=== PATIENT | male | born 1965 | race Caucasian/White ===

== ENCOUNTER 2021-09-17 16:03 | Inpatient (IN) | payer MEDICARE, MEDICAID, SELFPAY ==
[2021-09-17] VITALS (7 sets, daily range): BP systolic 117–139; BP diastolic 76–104; PULSE 123–194; RESP 20–33; TEMP 35.7–36.9; O2SAT 94–98; BMI 24.7; BMI 24.5
--- NOTE | 2021-09-17 16:53 | EKG12_ITS ---
Test Reason : TACH Blood Pressure : / mmHG Vent. Rate : 141 BPM Atrial Rate : 141 BPM P-R Int : 118 ms QRS Dur : 092 ms QT Int : 278 ms P-R-T Axes : 029 036 111 degrees QTc Int : 425 ms Sinus tachycardia Left ventricular hypertrophy with repolarization abnormality Abnormal ECG Confirmed by CRISS PAYTON, KEO ([id number]), general expeditor JEAN SIGALA ([id number]) on 09/21/2021 10:51:28 AM Referred By: BERNARDA Confirmed By:KEO KAHN MD
--- NOTE | 2021-09-17 16:56 | EX.ED.DYSGE1 ---
HPI History of Present Illness Chief Complaint: General Illness Informant: patient Narrative Narrative: Patient poor informant from medical records history of hypertension anxiety he states difficulty coughing due to not having his teeth in. From discussion gathering information 2 weeks ago constipation has not had a bowel movement since then. Denies abdominal pain. He has been eating certain foods with no problems. He states last week mild cough and headache. No vomiting or diarrhea. No fevers. Denies any sick contacts. No other complaints. No urinary symptoms. PFSH PFS Medical History (Updated 09/17/21 @ 23:[address] John Adrian, DO) Anxiety Hypertension Home Medications dicyclomine 20 mg PO TIDAC 02/26/14 [History Last Taken Unknown] lorazepam 0.5 mg PO TID 02/26/14 [History Last Taken 03/05/14 07:00 0.5 MG] metoprolol tartrate 100 mg PO BID 02/26/14 [History Last Taken 03/05/14 07:00 100 MG] omega-3 fatty acids-fish oil [Fish Oil 1,000 mg Capsule] 1 ea PO DAILY 02/26/14 [History Last Taken 03/05/14 07:00 1 EACH] paroxetine HCl 20 mg PO DAILY 02/26/14 [History Last Taken Unknown] Allergy/AdvReac Type Severity Reaction Status Date / Time No Known Allergies Allergy Verified 09/17/21 16:04 Family History unable to obtain Surgical History no surgical history Social History (Updated 09/17/21 @ 20:13 by Sherry Haywood NP-C) Smoking Status: Never smoker alcohol intake: never substance use type: does not use ROS ROS ED Constitutional Constitutional ED: Denies chills, fever(s) or sweats Eyes Eyes: Denies change in vision ENT ENT ED: Denies dysphagia or sore throat Cardiovascular Cardiovascular: Denies chest pain, leg edema, palpitations or racing heartbeat Respiratory/Chest Respiratory/Chest: Reports cough; Denies dyspnea or dyspnea on exertion Gastrointestinal Gastrointestinal: Reports constipation; Denies abdominal pain, diarrhea, nausea or vomiting Genitourinary Genitourinary ED: Denies dysuria, hematuria or urinary frequency Musculoskeletal Musculoskeletal: Denies back pain, extremity pain or neck pain Integumentary Denies rash or wounds Neurologic Neurologic: Reports headache(s); Denies paresthesias or weakness EXAM Physical Exam Const Vital Signs: 09/17/21 16:06 09/17/21 19:04 09/17/21 19:44 Temperature 98.0 F 98.4 F Temperature Source Temporal Temporal Pulse Rate 150 H 123 H 194 H Respiratory Rate 33 H 24 H 25 H Blood Pressure 117/104 H 134/86 H 139/76 H Blood Pressure Mean 108 102 97 Pulse Ox 95 95 94 Oxygen Delivery Method Room Air Room Air 09/17/21 20:19 09/17/21 20:26 Temperature Temperature Source Pulse Rate 144 H 132 H Respiratory Rate Blood Pressure Blood Pressure Mean Pulse Ox 95 Oxygen Delivery Method Room Air Positive well nourished and well developed Constitutional Narrative: Stuttering voice, nontoxic General Appearance ED: well developed HEENT Reports dry mucous membranes normocephalic and atraumatic Mouth ED: Yes dry mucous membranes Mouth: dry mucous membranes Eyes PERRL, EOMs intact bilaterally and conjunctivae normal General Eye ED: Yes normal appearance of both eyes Neck no lymphadenopathy and supple General: Negative for tenderness Chest Wall Chest: Negative for tenderness Resp normal respiratory effort and normal air movement Effort and Inspection: symmetric chest movement; Negative for respiratory distress Cardio regular rhythm and no murmurs Rate: tachycardic Peripheral Pulses: pulses 2+ throughout GI normal to inspection, nondistended, normoactive bowel sounds and non-tender Auscultation: normoactive bowel sounds Palpation: Negative for guarding or rebound tenderness present Back/Spine no CVA tenderness and no thoracic nor lumbar tenderness Extremity normal to inspection General Extremety ED: Negative for edema or tenderness General Extremity: Negative for edema Neuro oriented x3 and no sensory deficits noted Sensorium / Orientation: awake and alert Skin no rashes or lesions noted and no wounds MDM MDM MDM Narrative Medical decision making narrative: Patient presenting afebrile pulse ox 95%. Nontoxic with stuttering voice. He is tachycardic he has dry mucosal membranes. Heart rate in the 130s sinus rhythm on the monitor. Primary complaint is cough constipation. Will obtain abdominal series will check labs Covid testing and give IV fluids. Patient heart rate was in flu after 1 L of fluids down to 120s I did continue at 200 cc/h. Lab work notes acute kidney injury creatinine of 3 more likely concerns for prerenal due to his dry mucosal membranes. Potassium normal. Chest x-ray reported concerns for bilateral infiltrates. His Covid was negative. I spoke with hospitalist Dr. Benítez, requested adding a PCR for Covid prior to any antibiotics. This was added and pending. We did add a tox screen also returning negative. He did meet SIRS criteria therefore lactic acid and blood cultures were added. Patient admitted to medical floor on telemetry to hospitalist service. Lab Data Labs: Laboratory Results - last 24 hr 09/17/21 09/17/21 09/17/21 16:18 16:18 16:18 WBC 6.1 RBC 4.61 Hgb 14.5 Hct 43.0 MCV 93.3 MCH 31.5 MCHC 33.7 RDW Std Deviation 45.5 H RDW Coeff of Marycruz 14.1 Plt Count 311 MPV 10.7 Immature Gran % (Auto) 1.000 H Neut % (Auto) 64.2 Lymph % (Auto) 18.1 L [place] % (Auto) 14.9 H Eos % (Auto) 1.3 Baso % (Auto) 0.5 Absolute Neuts (auto) 3.9 Absolute Lymphs (auto) 1.11 Nucleated RBC % 0 Sodium 146 H Potassium 3.7 Chloride 113 H Carbon Dioxide 17.0 L Anion Gap 16 H BUN 111 H* Creatinine 3.15 H Estim Creat Clear Calc 25.06 Est GFR (MDRD) Af Amer 27 L Est GFR (MDRD) Non-Af 22 L BUN/Creatinine Ratio 35.2 H Glucose 144 H Lactic Acid Calcium 9.9 Total Bilirubin 0.80 AST 26 ALT 102 H Alkaline Phosphatase 250 H B-Natriuretic Peptide 24.1 Total Protein 8.4 H Albumin 3.7 Globulin 4.7 H Albumin/Globulin Ratio 0.8 L Lipase 167 Procalcitonin Urine Opiates Screen Urine Methadone Screen Ur Barbiturates Screen Ur Phencyclidine Scrn Ur Amphetamines Screen U Methamphetamin-MDMA U Benzodiazepines Scrn Urine Cocaine Screen U Cannabinoids Screen Ur Drug Screen Comment COVID-19 (LEONILA) 09/17/21 09/17/21 09/17/21 16:18 19:45 20:25 WBC RBC Hgb Hct MCV MCH MCHC RDW Std Deviation RDW Coeff of Marycruz Plt Count MPV Immature Gran % (Auto) Neut % (Auto) Lymph % (Auto) [place] % (Auto) Eos % (Auto) Baso % (Auto) Absolute Neuts (auto) Absolute Lymphs (auto) Nucleated RBC % Sodium Potassium Chloride Carbon Dioxide Anion Gap BUN Creatinine Estim Creat Clear Calc Est GFR (MDRD) Af Amer Est GFR (MDRD) Non-Af BUN/Creatinine Ratio Glucose Lactic Acid Calcium Total Bilirubin AST ALT Alkaline Phosphatase B-Natriuretic Peptide Total Protein Albumin Globulin Albumin/Globulin Ratio Lipase Procalcitonin 0.52 H Urine Opiates Screen NEGATIVE Urine Methadone Screen NEGATIVE Ur Barbiturates Screen NEGATIVE Ur Phencyclidine Scrn NEGATIVE Ur Amphetamines Screen NEGATIVE U Methamphetamin-MDMA NEGATIVE U Benzodiazepines Scrn NEGATIVE Urine Cocaine Screen NEGATIVE U Cannabinoids Screen NEGATIVE Ur Drug Screen Comment COVID-19 (LEONILA) Not Detected 09/17/21 20:25 WBC RBC Hgb Hct MCV MCH MCHC RDW Std Deviation RDW Coeff of Marycruz Plt Count MPV Immature Gran % (Auto) Neut % (Auto) Lymph % (Auto) [place] % (Auto) Eos % (Auto) Baso % (Auto) Absolute Neuts (auto) Absolute Lymphs (auto) Nucleated RBC % Sodium Potassium Chloride Carbon Dioxide Anion Gap BUN Creatinine Estim Creat Clear Calc Est GFR (MDRD) Af Amer Est GFR (MDRD) Non-Af BUN/Creatinine Ratio Glucose Lactic Acid 2.3 H* Calcium Total Bilirubin AST ALT Alkaline Phosphatase B-Natriuretic Peptide Total Protein Albumin Globulin Albumin/Globulin Ratio Lipase Procalcitonin Urine Opiates Screen Urine Methadone Screen Ur Barbiturates Screen Ur Phencyclidine Scrn Ur Amphetamines Screen U Methamphetamin-MDMA U Benzodiazepines Scrn Urine Cocaine Screen U Cannabinoids Screen Ur Drug Screen Comment COVID-19 (LEONILA) Radiography Diagnostic Testing: Clinical Impression(s) from Imaging Studies Acute Abdomen Series 09/17/21 17:15 IMPRESSION: Minimal patchy pulmonary opacities may represent infection in the appropriate clinical setting. Unremarkable abdominal radiographs. Electronically Signed: Reilly Phoenix MD at 17:43 EST , EKG Initial EKG: Attestation: I personally reviewed and interpreted this EKG as follows: Comments: Sinus tachycardia rate of 141, no ST or T wave changes. Discharge Plan Dx/Rx/DC Orders Clinical Impression: MARTY (acute kidney injury), Constipation, Acute dehydration Disposition Disposition: [facility] Discharge Date/Time: 09/17/21 21:24
[2021-09-17] MEDS: 0.9% Normal Saline 1,000 ML 1000 ML IV (17:10)
--- NOTE | 2021-09-17 17:15 | RAD_ITS ---
STUDY: X-RAY - ACUTE ABDOMINAL SERIES REASON FOR EXAM: Male, 55 years old. Cough, constipation TECHNIQUE: Single view of the chest. Supine, and erect view(s) of the abdomen were obtained. COMPARISON: None. FINDINGS: Minimal diffuse patchy pulmonary opacities. Normal size heart. Normal mediastinum and yunior. Normal visualized pulmonary arteries. Normal visualized aortic arch and descending thoracic aorta. There is a non-specific bowel gas pattern. The soft tissue structures of the abdomen and pelvis are unremarkable. Normal visualized osseous structures. RAD/Acute Abdomen Inc Chest IMPRESSION: Minimal patchy pulmonary opacities may represent infection in the appropriate clinical setting. Unremarkable abdominal radiographs. Electronically Signed: Reilly Phoenix MD at 17:43 EST ,
[2021-09-17 17:25] LABS: Absolute Lymphocyte Count 1.11 X10^3/uL (0.83-4.51); Absolute Neutrophil Count 3.9 X10^3/uL (2.0-7.7); Basophil# 0.03 X10^3/uL; Basophil% 0.5 % (0-1); Eosinophil# 0.08 X10^3/uL; Eosinophils% 1.3 % (0-5); Hemoglobin 14.5 g/dL (13.0-16.5); Lymphocyte # 1.11 X10^3/ul (0.83-4.51); Lymphocyte % 18.1 % (19-41); Mean Corp Hgb Conc 33.7 g/dL (32-36); Mean Corpuscular Hgb 31.5 pg (27.0-32.0); Mean Corpuscular Volume 93.3 fL (80-94); Mean Platelet Vol. 10.7 fl (6.2-12.0); Monocyte# 0.91 X10^3/uL; Monocyte% 14.9 % (0-10); NRBC Flagged by Analyzer 0 % (0-5); Neutrophil # 3.93 X10^3/uL (2.7-7.7); Neutrophil % 64.2 % (47-70); Platelet Count 311 K/mm3 (150-450); RBC Distribution Width CV 14.1 % (11.6-14.6); RBC Distribution Width SD 45.5 fl (35.1-43.9); Red Blood Count 4.61 M/mm3 (4.6-6.2); White Blood Count 6.1 K/mm3 (4.4-11.0)
[2021-09-17 18:27] LABS: ALB/GLOB Ratio 0.8 RATIO (0.9-2.4); AST(SGOT) 26 U/L (15-37); Alanine Aminotransfer ALT/SGPT 102 U/L (16-61); Albumin, Serum 3.7 g/dL (3.2-5.0); Alkaline Phosphatase 250 U/L (45-117); Anion Gap 16 (5-15); BUN 111 mg/dL (7-18); BUN/Creat Ratio 35.2 RATIO (10-20); Calcium,Total 9.9 mg/dL (8.5-10.1); Chloride 113 mmol/L (98-107); Creatinine, Serum 3.15 mg/dL (0.70-1.30); EST Glomerular Filtration Rate 22 mL/min (>60); Est Glom Filt Rate - Afr Amer 27 mL/min (>60); Estimated Creatinine Clearance 25.06 ml/min; Globulin 4.7 g/dL (2.2-4.2); Glucose 144 mg/dL (74-106); Lipase 167 U/L (73-393); Potassium 3.7 mmol/L (3.5-5.1); Protein, Total 8.4 g/dL (6.4-8.2); Sodium Level 146 mmol/L (136-145)
--- NOTE | 2021-09-17 19:48 | ED.RN ---
Patient is positive on sepsis screen and already had 1L NS wide open. Has 200ml/hr ordered but waiting on pharm to verify.
[2021-09-17] MEDS: 0.9% Normal Saline 1,000 ML 200 ML IV (19:52)
--- NOTE | 2021-09-17 19:52 | ED.RN ---
Dr Adrian aware of the sepsis positive but with creatinine and bun, we are just keeping fluids as is and not doing the full resuscitation. We will still do lactic and cultures
--- NOTE | 2021-09-17 20:08 | HP.PCM_ITS ---
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 Patient also reports that he is constipated and has not had a bowel movement in 2 weeks. Patient denies shortness of breath, chest pain, fever, abdominal pain, nausea, vomiting. Patient states that he has felt unwell for approximately 1 week but has been constipated for 2. Patient denies using any [id number] laxatives to treat constipation. Patient reports a medical history of anxiety and hypertension. [facility] Medical History (Updated 09/17/21 @ 20:28 by VAISHNAVI Mora) Anxiety Hypertension Home Medications dicyclomine 20 mg PO TIDAC 02/26/14 [History Last Taken Unknown] lorazepam 0.5 mg PO TID 02/26/14 [History Last Taken 03/05/14 07:00 0.5 MG] metoprolol tartrate 100 mg PO BID 02/26/14 [History Last Taken 03/05/14 07:00 100 MG] omega-3 fatty acids-fish oil [Fish Oil 1,000 mg Capsule] 1 ea PO DAILY 02/26/14 [History Last Taken 03/05/14 07:00 1 EACH] paroxetine HCl 20 mg PO DAILY 02/26/14 [History Last Taken Unknown] Allergy/AdvReac Type Severity Reaction Status Date / Time No Known Allergies Allergy Verified 09/17/21 16:04 Family History unable to obtain unable to obtain (Patient is unable to report medical history for family) Surgical History no surgical history no surgical history Social History (Updated 09/17/21 @ 20:13 by VAISHNAVI Mora) Smoking Status: Never smoker alcohol intake: never substance use type: does not use ROS Constitutional Constitutional: Reports malaise; Denies anorexia, chills, fatigue, fever(s) or weakness Cardiovascular Cardiovascular: Denies chest pain, edema, palpitations or syncope Respiratory/Chest Respiratory/Chest: Reports cough; Denies hemoptysis, shortness of breath at rest, shortness of breath with exertion or wheezing Gastrointestinal Gastrointestinal: Reports constipation; Denies abdominal pain, diarrhea, nausea or vomiting Genitourinary Genitourinary: Denies dysuria Musculoskeletal Musculoskeletal: Denies back pain, extremity pain, joint pain or joint stiffness Integumentary Integumentary: Denies dry skin Neurologic Neurologic: Reports abnormal speech and headache(s); Denies abnormal gait, confusion or dizziness Psychiatric Psychiatric: Reports anxiety; Denies depression Endocrine Endocrinology: Denies change in body appearance Hematologic/Lymphatic Hematologic/Lymphatic: Denies anemia, easy bleeding or easy bruising Vital Signs Vital Signs Vital Signs: 09/17/21 16:06 09/17/21 19:04 09/17/21 19:44 Temperature 98.0 F 98.4 F Temperature Source Temporal Temporal Pulse Rate 150 H 123 H 194 H Respiratory Rate 33 H 24 H 25 H Blood Pressure 117/104 H 134/86 H 139/76 H Blood Pressure Mean 108 102 97 Pulse Ox 95 95 94 Oxygen Delivery Method Room Air Room Air Weight Weight: 158 lb 4.67 oz Body Mass Index (BMI) 24.7 Physical Exam Const alert and oriented x3 General Appearance: cooperative HEENT normocephalic and head/scalp atraumatic Eyes conjunctivae normal and no scleral icterus Neck supple and thyroid normal Lymph Lymphatic: no lymphadenopathy noted Resp normal respiratory effort, normal air movement and clear to auscultation bilaterally Effort and Inspection: tachypneic; Negative for labored Auscultation: Negative for wheezes Cardio regular rhythm, S1 normal heart sound, S2 normal heart sound and peripheral pulses 2+ throughout Rate: tachycardic GI normal to inspection, nondistended, normoactive bowel sounds, soft to palpation and non-tender Extremity normal capillary refill and no clubbing, cyanosis or edema General Extremity: no tenderness to palpation of joints or extremities Skin General Skin Exam: no breakdown and turgor normal Lesions: no lesions Rashes: no rashes Neuro no focal motor deficits and no sensory deficits noted Speech: speech abnormal Details: Positive for stuttering (Patient not currently wearing dentures) Motor Exam: Negative for general weakness Psych cooperative Appearance: bizarre Attitude: bizarre Activity / Motor Behavior: avoids eye contact Mood & Affect: anxious Results Lab / Micro Data Result Diagrams: 09/17/21 16:18 09/17/21 16:18 Labs: Laboratory Results - last 24 hr 09/17/21 16:18: WBC 6.1, RBC 4.61, Hgb 14.5, Hct 43.0, MCV 93.3, MCH 31.5, MCHC 33.7, RDW Std Deviation 45.5 H, RDW Coeff of Marycruz 14.1, Plt Count 311, MPV 10.7, Immature Gran % (Auto) 1.000 H, Neut % (Auto) 64.2, Lymph % (Auto) 18.1 L, [place] % (Auto) 14.9 H, Eos % (Auto) 1.3, Baso % (Auto) 0.5, Absolute Neuts (auto) 3.9, Absolute Lymphs (auto) 1.11, Nucleated RBC % 0 09/17/21 16:18: Sodium 146 H, Potassium 3.7, Chloride 113 H, Carbon Dioxide 17.0 L, Anion Gap 16 H, BUN 111 H*, Creatinine 3.15 H, Estim Creat Clear Calc 25.06, Est GFR (MDRD) Af Amer 27 L, Est GFR (MDRD) Non-Af 22 L, BUN/Creatinine Ratio 35.2 H, Glucose 144 H, Calcium 9.9, Total Bilirubin 0.80, AST 26, ALT 102 H, Alk ferdinand Phosphatase 250 H, Total Protein 8.4 H, Albumin 3.7, Globulin 4.7 H, Albumin/Globulin Ratio 0.8 L, Lipase 167 Micro: Microbiology 09/17/21 17:13 Nasal Secretion SARS-CoV-2 Antigen (Rapid) - Final Radiology Impression Acute Abdomen Series 09/17/21 17:15 IMPRESSION: Minimal patchy pulmonary opacities may represent infection in the appropriate clinical setting. Unremarkable abdominal radiographs. Electronically Signed: Reilly Phoenix MD at 17:43 EST , Assessment & Plan Assessment/Plan (1) MARTY (acute kidney injury): (2) Constipation: QUALIFIERS: Constipation type: unspecified constipation type Qualified Code(s): K59.00 - Constipation, unspecified (3) Bilateral pneumonia: QUALIFIERS: Lung location: lower lobe of lung Pneumonia type: due to unspecified organism Qualified Code(s): J18.9 - Pneumonia, unspecified organism PLAN: 1. Acute kidney injury -Admit to PCU for cardiac monitoring -Patient received 1 L normal saline in ER, normal saline 200 mL/h -BMP and CBC daily -Daily weights with intake and output -O2 per protocol -Troponin x1 2. Bilateral pneumonia -Patchy infiltrates in bilateral lower lobes demonstrated on acute abdominal series. With patient's report of malaise and cough suspicious for pneumonia. -Patient not vaccinated for COVID-19, rapid antigen negative. PCR ordered due to length of patient's symptoms -Procalcitonin, sputum culture, urine Legionella and strep ordered -Patient currently on room air, pulse ox 95% -If Covid PCR is negative patient will be initiated on antibiotic regimen. -BMP, CRP, D-dimer, ferritin, LDH ordered -As needed albuterol ordered 3. Constipation -Bowel regimen ordered due to patient's report that he has not had a bowel movement in 2 weeks 4. Hypertension -Continue metoprolol -Vital signs per protocol, currently stable 5. Anxiety -Continue home medication regimen including paroxetine and lorazepam. DVT prophylaxis-subcu heparin and SCDs This patient was seen by Sherry Haywood NP-C under the supervision of Dr. Benítez. 27 minutes spent in clinical coordination of patient's plan of care. Documented by User: Dr. Jyoti Benítez MD 09/17/21 22:45 HPI - General General Date of Admission: 09/17/21 [facility] Medical History (Updated 09/17/21 @ 20:28 by Sherry Haywood NP-C) Anxiety Hypertension Home Medications dicyclomine 20 mg PO TIDAC 02/26/14 [History Last Taken Unknown] lorazepam 0.5 mg PO TID 02/26/14 [History Last Taken 03/05/14 07:00 0.5 MG] metoprolol tartrate 100 mg PO BID 02/26/14 [History Last Taken 03/05/14 07:00 100 MG] omega-3 fatty acids-fish oil [Fish Oil 1,000 mg Capsule] 1 ea PO DAILY 02/26/14 [History Last Taken 03/05/14 07:00 1 EACH] paroxetine HCl 20 mg PO DAILY 02/26/14 [History Last Taken Unknown] Allergy/AdvReac Type Severity Reaction Status Date / Time No Known Allergies Allergy Verified 09/17/21 16:04 Family History unable to obtain Surgical History no surgical history Social History (Updated 09/17/21 @ 20:13 by Sherry Haywood [employer]-C) Smoking Status: Never smoker alcohol intake: never substance use type: does not use Results Lab / Micro Data Result Diagrams: 09/17/21 16:18 09/17/21 16:18
[2021-09-17 21:40] LABS: Amphetamine Urine VISTA NEGATIVE (<1000 ng/mL); Barbiturate Urine VISTA NEGATIVE (< 200 ng/mL); Benzodiazepine Urine VISTA NEGATIVE (< 200 ng/mL); Cocaine Urine VISTA NEGATIVE (< 300 ng/mL); Ecstacy Urine VISTA NEGATIVE (< 500 ng/mL); Methadone Urine VISTA NEGATIVE (< 300 ng/mL); PCP Urine VISTA NEGATIVE (< 25 ng/mL); THC Urine VISTA NEGATIVE (< 50 ng/mL); Vista UDS pH Range 5
[2021-09-17 21:56] LABS: Lactic Acid 2.3 mmol/L (0.4-1.9)
[2021-09-17 21:57] LABS: Procalcitonin 0.52 ng/mL (0.00-0.09)
[2021-09-17 21:59] LABS: BNP,B-Type NATRIURETIC PEPTIDE 24.1 pg/mL (0-100)
[2021-09-17] MEDS: LORazepam 0.5 MG Tablet PO (22:40)
[2021-09-17] MEDS: Heparin Injection (Vial) 5,000 UNIT/ML VIAL 5000 UNIT SC (22:40)
[2021-09-17] MEDS: 0.9% Normal Saline 1,000 ML 150 ML IV (22:40)
[2021-09-17 23:00] LABS: D-Dimer Quantitative (DVT/PE) 0.42 FEU/ug/m (0.27-0.49)
[2021-09-17 23:16] LABS: Ferritin 797 ng/mL (26-388); LDH 182 U/L (87-241); Troponin-I HS 36 pg/mL (3.0-78.0)
[2021-09-17] MEDS: Ceftriaxone 1 GM/50 ML BAG IV (23:27)
[2021-09-18] VITALS (12 sets, daily range): BP systolic 113–147; BP diastolic 80–98; PULSE 77–135; RESP 12–20; TEMP 36.3–36.6; O2SAT 95–98
[2021-09-18 00:28] LABS: Reflex Lactate? Y
[2021-09-18 01:20] LABS: Lactic Acid 1.7 mmol/L (0.4-1.9)
--- NOTE | 2021-09-18 01:27 | PCS.PANDOC ---
PANDEMIC DOCUMENTATION INITIATED: Date: 04/06/2021 Time: 190
[2021-09-18 03:37] LABS: Mucous, Urine 0 SEEN /hpf (<or=2+); Squamous Epithelial Cells - UA 0 SEEN /hpf (0-5); White Blood Cells 0 SEEN /hpf (0-5)
[2021-09-18 03:42] LABS: Color, Urine Yellow (Yellow); Glucose, Dipstick Normal (Normal); Ketone-Dipstick Negative (Negative); Leukocyte Esterase-Dipstick Negative /ul (Negative); Nitrite-Dipstick Negative (Negative); Occult Blood-Urine 10 /ul (Negative); Protein-Dipstick 30 mg/dl (Negative); Specific Gravity, Urine 1.015 (1.002-1.030); Urine Bilirubin Dipstick Negative (Negative); Urine Clarity Clear (Clear); Urine Urobilinogen Normal (Normal)
[2021-09-18 04:00] LABS: Amorphous Sediment 1+; Bacteria 2+ /hpf (None Seen); Red Blood Cells-Urine 0-5 SEEN /hpf (0-5)
[2021-09-18 04:01] LABS: Fine Granular Cast- Urine 0-5 SEEN /lpf (0-5)
[2021-09-18 05:34] LABS: Absolute Lymphocyte Count 0.55 X10^3/uL (0.83-4.51); Absolute Neutrophil Count 3.5 X10^3/uL (2.0-7.7); Basophil# 0.01 X10^3/uL; Basophil% 0.2 % (0-1); Eosinophil# 0.03 X10^3/uL; Eosinophils% 0.6 % (0-5); Hematocrit 35.8 % (40-54); Hemoglobin 11.9 g/dL (13.0-16.5); Lymphocyte # 0.55 X10^3/ul (0.83-4.51); Lymphocyte % 11.1 % (19-41); Mean Corp Hgb Conc 33.2 g/dL (32-36); Mean Corpuscular Hgb 31.4 pg (27.0-32.0); Mean Corpuscular Volume 94.5 fL (80-94); Mean Platelet Vol. 10.2 fl (6.2-12.0); Monocyte# 0.76 X10^3/uL; Monocyte% 15.4 % (0-10); NRBC Flagged by Analyzer 0 % (0-5); Neutrophil # 3.53 X10^3/uL (2.7-7.7); Neutrophil % 71.3 % (47-70); POSITIVE DIFFERENTIAL YES; Platelet Count 185 K/mm3 (150-450); RBC Distribution Width CV 14.3 % (11.6-14.6); RBC Distribution Width SD 46.8 fl (35.1-43.9); Red Blood Count 3.79 M/mm3 (4.6-6.2)
[2021-09-18 05:44] LABS: Differential Indicated SCAN CRITERIA MET
[2021-09-18] MEDS: LORazepam 0.5 MG Tablet PO ×3 (06:00→21:22)
[2021-09-18] MEDS: 0.9% Normal Saline 1,000 ML 150 ML IV (06:00)
[2021-09-18] MEDS: Dicyclomine 10 MG Capsule 20 MG PO ×3 (06:00→16:47)
[2021-09-18 06:10] LABS: ALB/GLOB Ratio 0.7 RATIO (0.9-2.4); AST(SGOT) 56 U/L (15-37); Alanine Aminotransfer ALT/SGPT 98 U/L (16-61); Alkaline Phosphatase 246 U/L (45-117); Anion Gap 7 (5-15); BUN 96 mg/dL (7-18); Calcium,Total 9.5 mg/dL (8.5-10.1); Chloride 120 mmol/L (98-107); EST Glomerular Filtration Rate 30 mL/min (>60); Est Glom Filt Rate - Afr Amer 36 mL/min (>60); Estimated Creatinine Clearance 31.75 ml/min; Globulin 4.6 g/dL (2.2-4.2); Glucose 124 mg/dL (74-106); Potassium 3.7 mmol/L (3.5-5.1); Protein, Total 7.6 g/dL (6.4-8.2); Sodium Level 149 mmol/L (136-145)
[2021-09-18 06:12] LABS: Differential Comment SCANNED
--- NOTE | 2021-09-18 07:59 | PCM.PN.HOSP ---
Subjective Subjective Follow-up for acute kidney injury. Objective Data Objective Data Vital Signs: Vital Signs Temp Pulse Resp BP Pulse Ox 97.6 F L 117 H 20 H 136/80 H 98 09/18/21 02:03 09/18/21 06:23 09/18/21 02:03 09/18/21 02:03 09/18/21 07:41 Oxygen Delivery Method Room Air Weight: 152 lb 5.431 oz Body Mass Index (BMI) 24.5 Intake & Output: Intake and Output for Last 24 Hours 09/16/21 09/17/21 09/18/21 23:59 23:59 23:59 Intake Total 2170 / 2170 1495 / 1495 Output Total 150 / 150 Balance 2170 / 2170 1345 / 1345 Lab / Micro Data Result Diagrams: 09/18/21 05:05 09/18/21 05:05 Labs: Laboratory Results - last 24 hr 09/17/21 16:18: WBC 6.1, RBC 4.61, Hgb 14.5, Hct 43.0, MCV 93.3, MCH 31.5, MCHC 33.7, RDW Std Deviation 45.5 H, RDW Coeff of Marycruz 14.1, Plt Count 311, MPV 10.7, Immature Gran % (Auto) 1.000 H, Neut % (Auto) 64.2, Lymph % (Auto) 18.1 L, Atkinson % (Auto) 14.9 H, Eos % (Auto) 1.3, Baso % (Auto) 0.5, Absolute Neuts (auto) 3.9, Absolute Lymphs (auto) 1.11, Nucleated RBC % 0 09/17/21 16:18: Sodium 146 H, Potassium 3.7, Chloride 113 H, Carbon Dioxide 17.0 L, Anion Gap 16 H, BUN 111 H*, Creatinine 3.15 H, Estim Creat Clear Calc 25.06, Est GFR (MDRD) Af Amer 27 L, Est GFR (MDRD) Non-Af 22 L, BUN/Creatinine Ratio 35.2 H, Glucose 144 H, Calcium 9.9, Total Bilirubin 0.80, AST 26, ALT 102 H, Alkaline Phosphatase 250 H, Total Protein 8.4 H, Albumin 3.7, Globulin 4.7 H, Albumin/Globulin Ratio 0.8 L, Lipase 167 09/17/21 16:18: B-Natriuretic Peptide 24.1 09/17/21 16:18: Procalcitonin 0.52 H 09/17/21 16:18: Acetone Level NEGATIVE 09/17/21 19:45: COVID-19 (LEONILA) Not Detected 09/17/21 20:25: Urine Opiates Screen NEGATIVE, Urine Methadone Screen NEGATIVE, Ur Barbiturates Screen NEGATIVE, Ur Phencyclidine Scrn NEGATIVE, Ur Amphetamines Screen NEGATIVE, U Methamphetamin-MDMA NEGATIVE, U Benzodiazepines Scrn NEGATIVE, Urine Cocaine Screen NEGATIVE, U Cannabinoids Screen NEGATIVE, Ur Drug Screen Comment 09/17/21 20:25: Lactic Acid 2.3 H* 09/17/21 22:30: D-Dimer Quant (PE/DVT) 0.42 09/17/21 22:30: Ferritin 797 H, Lactate Dehydrogenase 182, Troponin I High Sens 36, C-React Prot Ext Range 69.00 H 09/18/21 00:43: Lactic Acid 1.7 09/18/21 03:30: Urine Color Yellow, Urine Clarity Clear, Urine pH 5.0, Ur Specific [place] 1.015, Urine Protein 30 H, Urine Glucose (UA) Normal, Urine Ketones Negative, Urine Occult Blood 10 H, Urine Nitrite Negative, Urine Bilirubin Negative, Urine Urobilinogen Normal, Ur Leukocyte Esterase Negative, Urine RBC 0-5 SEEN, Urine WBC 0 SEEN, Ur Squamous Epith Cells 0 SEEN, Amorphous Sediment 1+, Urine Bacteria 2+, Fine Granular Casts 0-5 SEEN, Urine Mucus 0 SEEN 09/18/21 05:05: WBC 5.0, RBC 3.79 L, Hgb 11.9 L, Hct 35.8 L, MCV 94.5 H, MCH 31.4, MCHC 33.2, RDW Std Deviation 46.8 H, RDW Coeff of Marycruz 14.3, Plt Count 185, MPV 10.2, Immature Gran % (Auto) 1.400 H, Neut % (Auto) 71.3 H, Lymph % (Auto) 11.1 L, Atkinson % (Auto) 15.4 H, Eos % (Auto) 0.6, Baso % (Auto) 0.2, Absolute Neuts (auto) 3.5, Absolute Lymphs (auto) 0.55 L, Nucleated RBC % 0, Differential Comment SCANNED 09/18/21 05:05: Sodium 149 H, Potassium 3.7, Chloride 120 H, Carbon Dioxide 22.0, Anion Gap 7, BUN 96 H, Creatinine 2.40 H, Estim Creat Clear Calc 31.75, Est GFR (MDRD) Af Amer 36 L, Est GFR (MDRD) Non-Af 30 L, BUN/Creatinine Ratio 40.0 H, Glucose 124 H, Calcium 9.5, Total Bilirubin 0.60, AST 56 H, ALT 98 H, Alkaline Phosphatase 246 H, Total Protein 7.6, Albumin 3.0 L, Globulin 4.6 H, Albumin/Globulin Ratio 0.7 L Micro: Microbiology 09/17/21 20:25 Urine, Random Legionella Antigen - Final 09/17/21 20:25 Urine, Random Streptococcus pneumoniae Antigen (M - Final 09/17/21 17:13 Nasal Secretion SARS-CoV-2 Antigen (Rapid) - Final Radiography Diagnostic Testing: Radiology Impression Acute Abdomen Series 09/17/21 17:15 IMPRESSION: Minimal patchy pulmonary opacities may represent infection in the appropriate clinical setting. Unremarkable abdominal radiographs. Electronically Signed: Reilly Phoenix MD at 17:43 EST , Physical Exam Narrative General: Awake, alert and oriented x3. HEENT: Atraumatic, PERRLA, EOMI, Normocephalic Oral: No Gingival or Mucosal Lesions/ Ulcerations Neck: Supple, No JVD, Negative Carotid Bruits Lungs: Air entry diminished in bilateral lung bases. No crepitation/rhonchi Cardiovascular: Sinus tachycardia resolved., Normal S1, Normal S2, No murmurs Abdomen: Bowel Sounds Present, Soft, Non Tender, Non-Distended : No renal angle tenderness. No suprapubic tenderness. Extremities: No edema, Capillary Refill Less than 3 Seconds Skin: No rashes, No breakdown Musculoskeletal: No Tenderness to Palpation of Joints or Extremities. Tremors in both hands. Restless legs. Neurological: Chronic stuttering. No acute. Cranial nerves II-XII grossly intact, DTR 2+/4, Neuro grossly intact Psych/Mental Status: Restless, anxiety Assessment & Plan Assessment/Plan (1) MARTY (acute kidney injury): (2) Constipation: QUALIFIERS: Constipation type: unspecified constipation type Qualified Code(s): K59.00 - Constipation, unspecified (3) Bilateral pneumonia: QUALIFIERS: Lung location: lower lobe of lung Pneumonia type: due to unspecified organism Qualified Code(s): J18.9 - Pneumonia, unspecified organism PLAN: 1. Acute kidney injury: Patient is being admitted to PCU. Seems prerenal. BUN/creatinine profile improving. Monitor intake and output, electrolytes and kidney function. Daily weight. 2. Bilateral pneumonia: Abdominal x-ray independently initially reviewed and shows bilateral infiltrates in lower lobes. -Patient not vaccinated for COVID-19, rapid antigen negative. -Procalcitonin 0.5. Rapid antigen and COVID-19 PCR negative. Normal WBC count. ALC 0.55 thousand. D-dimer, LDH and lactic acid normal. Ferritin and CRP elevated -Patient currently on room air, pulse ox 95%. As needed albuterol 3. Constipation -Bowel regimen. Patient did not bowel for 2 weeks prior to admission 4. Hypertension -Continue metoprolol -Vital signs per protocol, currently stable 5. Anxiety -Continue home medication regimen including paroxetine and lorazepam. DVT prophylaxis-subcu heparin and SCDs Charges/Coding Visit Charges Inpatient E&M: 50776 Subs Hosp L2
[2021-09-18 08:08] LABS: Hemoglobin A1c 5.5 % (3.8-5.6)
[2021-09-18] MEDS: Heparin Injection (Vial) 5,000 UNIT/ML VIAL 5000 UNIT SC ×2 (08:32→21:22)
[2021-09-18] MEDS: Paroxetine 20 MG Tablet PO (08:32)
[2021-09-18] MEDS: Metoprolol Tartrate 100 MG Tablet PO ×2 (08:32→21:23)
--- NOTE | 2021-09-18 10:55 | CASEMGMT ---
DAGOBERTO MELISSA assessment: Face to Face with patient for initial transition planning/care coordination assessment. DAGOBERTO MELISSA introduced self and role at [facility], pt voices understanding and consents to assessment. Pt is sitting up in bed in no distress on room air. Pt is A/Ox4 and answers most questions appropriately. Pt with [employer] and lives with father, who he states is his guardian. Care providers, pharmacy, and demographics verified/updated. Presentation: Pt c/o not eating well or feeling well Admitting dx: Bilat pna, MARTY PCP: Dinh Specialists: Pt states no specialists. [facility]erred [facility]acy: [facility] Insurance: [facility] A/B, HERVE Prescription Benefit: Yes Living Will/HPOA: Pt states does not have LW/HPOA and declines AD info. LNOK: Ugo Colon, father; Angel Colon, brother Living Arrangements: Pt lives with father in 1 story home and states no concerns at home. Pt is independent with ADL's. Transportation: Pt states father drives and states no transportation concerns. DME/HHC: Pt has the following DME: cane, walker, and grab bars. Pt states no need for any further DME. Pt states no hx of HHC or SNF. Pt states he does have a CM thru the board of [employer]. Pt states no concerns with going home at time of discharge. Pt is disabled. Pt states does not smoke cigarettes or drink ETOH. Pt voices no further concerns/needs. CM to follow for any further discharge planning/needs. Advised pt to ask for CM if any further questions/concerns/needs arise, voices understanding. Pt Goal: Home Plan: [place] DAGOBERTO MELISSA
--- NOTE | 2021-09-18 16:25 | RAD_ITS ---
STUDY: X-RAY CHEST REASON FOR EXAM: Male, 55 years old. Fever and cough TECHNIQUE: PA and lateral views of the chest. COMPARISON: 09/17/2021 FINDINGS: EKG leads overlie the chest Lungs are expanded with persistent and unchanged interstitial and airspace opacifications both lung azmudio. Normal size heart. Normal mediastinum and yunior. Normal visualized pulmonary arteries. Normal visualized aortic arch and descending thoracic aorta. Normal visualized thoracic spine. Normal visualized ribs, clavicles, and shoulders. There is no demonstrated abnormality of the visualized soft tissue structures of the upper abdomen. RAD/Chest PA and Lateral IMPRESSION: Persistent interstitial and airspace opacifications of both lung zamudio unchanged from the previous study Electronically Signed: Rickie Ramirez MD at 16:59 EST ,
[2021-09-18] MEDS: Vancomycin IV 1,000 MG/200 ML BAG 200 MG IV (17:33)
--- NOTE | 2021-09-18 18:22 | PCM.RX.CS ---
Consult Pharmacy has been consulted to manage selected antiobiotic: Vancomycin Type of Consult: New start Labs: Sodium 149 mmol/L (136-145) H 09/18/21 05:05 Potassium 3.7 mmol/L (3.5-5.1) 09/18/21 05:05 Chloride 120 mmol/L (98-107) H 09/18/21 05:05 Carbon Dioxide 22.0 mmol/L (21.0-32.0) 09/18/21 05:05 Anion Gap 7 (5-15) 09/18/21 05:05 BUN 96 mg/dL (7-18) H 09/18/21 05:05 Creatinine 2.40 mg/dL (0.70-1.30) H 09/18/21 05:05 Est GFR (MDRD) Af Amer 36 mL/min (>60) L 09/18/21 05:05 Est GFR (MDRD) Non-Af 30 mL/min (>60) L 09/18/21 05:05 BUN/Creatinine Ratio 40.0 RATIO (10-20) H 09/18/21 05:05 Glucose 124 mg/dL (74-106) H 09/18/21 05:05 Microbiology: Microbiology 09/17/21 20:00 Blood Culture (Wb) - Anticubital Left Blood Culture - Preliminary 09/17/21 20:25 Urine, Random Legionella Antigen - Final 09/17/21 20:25 Urine, Random Streptococcus pneumoniae Antigen (M - Final 09/17/21 17:13 Nasal Secretion SARS-CoV-2 Antigen (Rapid) - Final Goal Trough: 15-20 mcg/mL Pharmacy Plan for Drug Dosing: Trough goal: 15-20 Initial dose: 1g IV x1 (15mg/kg) vancomycin ordered and administered09/18/21 @1733 Scheduled dosing IV Q24h to start 09/19/21 @1700 Trough: 09/20/21 @1630, prior to 3rd total dose per protocol Pharmacy Service will continue to monitor and adjust dosing as required.
[2021-09-18] MEDS: Ceftriaxone 1 GM/50 ML BAG IV (21:20)
[2021-09-19] MEDS: LORazepam 0.5 MG Tablet PO ×3 (05:25→21:40)
[2021-09-19 10:00] VITALS: PULSE 80
[2021-09-19] MEDS: Metoprolol Tartrate 100 MG Tablet PO ×2 (10:00→21:40)
[2021-09-19] MEDS: Paroxetine 20 MG Tablet PO (10:00)
[2021-09-19] MEDS: Heparin Injection (Vial) 5,000 UNIT/ML VIAL 5000 UNIT SC ×2 (10:00→21:40)
--- NOTE | 2021-09-19 16:45 | PN_ITS ---
DATE OF SERVICE 09/19/2021 SUBJECTIVE Patient is not short of breath. Spontaneously voiding mildly yellow urine. Patient has chronic stuttering and restlessness. 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 Sinus rhythm therefore ordered to take it off. OBJECTIVE General: Awake, alert and oriented x3. HEENT: Atraumatic, PERRLA, EOMI, Normocephalic Oral: No Gingival or Mucosal Lesions/ Ulcerations Neck: Supple, No JVD, Negative Carotid Bruits Lungs: Air entry diminished in bilateral lung bases. No crepitation/rhonchi Cardiovascular: Sinus rhythm, Normal S1, Normal S2, No murmurs Abdomen: Bowel Sounds Present, Soft, Non Tender, Non-Distended : No burning micturition of urine. No tender in penile urine or scrotal region. No suprapubic tenderness. Extremities: No edema, Capillary Refill Less than 3 Seconds Skin: No rashes, No breakdown Musculoskeletal: No Tenderness to Palpation of Joints or Extremities. Tremors in both hands. Restless legs. Neurological: Chronic stuttering. No acute. Cranial nerves II-XII grossly intact, DTR 2+/4, Neuro grossly intact Psych/Mental Status: Restless, anxiety ASSESSMENT/PLAN 1. Acute kidney injury: Patient is being admitted to PCU. Seems prerenal. BUN/creatinine profile improving. Monitor intake and output, electrolytes and kidney function. Daily weight. 09/19: Labs have been ordered. CBC shows hemoglobin 10.9/32.4. BUN/creatinine 61/1.78, improving. Denies burning micturition. K4.1. Sodium 152. Calcium 9.6. Magnesium 3.0. Phosphorus 2.8. 2. Bilateral pneumonia most likely due to Bactrim: Abdominal x-ray independently initially reviewed and shows bilateral infiltrates in lower lobes. -Patient not vaccinated for COVID-19, rapid antigen negative. -Procalcitonin 0.5. Rapid antigen and COVID-19 PCR negative. Normal WBC count. ALC 0.55 thousand. D-dimer, LDH and lactic acid normal. Ferritin and CRP elevated. Isolation discontinued -Patient currently on room air, pulse ox 95%. As needed albuterol 09/19: Continue antibiotic. 3. Constipation -Bowel regimen. Patient did not bowel for 2 weeks prior to admission 09/19: On a stool softener 4. Hypertension -Continue metoprolol -Vital signs per protocol, currently stable 5. Anxiety -Continue home medication regimen including paroxetine and lorazepam. DVT prophylaxis-subcu heparin and SCDs Billing code: [id number]
[2021-09-19] MEDS: Vancomycin IV 1,000 MG/200 ML BAG 200 MG IV (17:30)
[2021-09-19 21:13] LABS: Hematocrit 32.4 % (40-54); Hemoglobin 10.9 g/dL (13.0-16.5); Mean Corp Hgb Conc 33.6 g/dL (32-36); Mean Corpuscular Hgb 32.1 pg (27.0-32.0); Mean Corpuscular Volume 95.3 fL (80-94); Mean Platelet Vol. 9.5 fl (6.2-12.0); POSITIVE DIFFERENTIAL YES; Platelet Count 193 K/mm3 (150-450); RBC Distribution Width CV 14.1 % (11.6-14.6); RBC Distribution Width SD 46.5 fl (35.1-43.9); White Blood Count 3.7 K/mm3 (4.4-11.0)
[2021-09-19 21:14] LABS: ERROR RESULT FLAG YES; Scan Indicated on CBC? Y/N YES- FLAGS NOTED
[2021-09-19 21:15] LABS: Differential Comment SCANNED
[2021-09-19 21:40] VITALS: PULSE 80
[2021-09-19] MEDS: Ceftriaxone 1 GM/50 ML BAG IV (22:00)
[2021-09-20 01:53] LABS: ALB/GLOB Ratio 0.7 RATIO (0.9-2.4); AST(SGOT) 49 U/L (15-37); Alanine Aminotransfer ALT/SGPT 117 U/L (16-61); Alkaline Phosphatase 230 U/L (45-117); Anion Gap 6 (5-15); BUN 61 mg/dL (7-18); BUN/Creat Ratio 34.3 RATIO (10-20); Calcium,Total 9.6 mg/dL (8.5-10.1); Chloride 123 mmol/L (98-107); Creatinine, Serum 1.78 mg/dL (0.70-1.30); EST Glomerular Filtration Rate 42 mL/min (>60); Est Glom Filt Rate - Afr Amer 51 mL/min (>60); Estimated Creatinine Clearance 42.81 ml/min; Globulin 4.6 g/dL (2.2-4.2); Glucose 108 mg/dL (74-106); Phosphorus 2.8 mg/dL (2.5-4.9); Potassium 4.1 mmol/L (3.5-5.1); Protein, Total 7.6 g/dL (6.4-8.2); Sodium Level 152 mmol/L (136-145)
[2021-09-20 03:15] VITALS: BP 126/100; PULSE 69; RESP 18; TEMP 36.5; O2SAT 96
[2021-09-20] MEDS: LORazepam 0.5 MG Tablet PO ×2 (06:22→13:53)
[2021-09-20 09:15] VITALS: BP 132/84; PULSE 79; RESP 18; TEMP 36.6; O2SAT 97
--- NOTE | 2021-09-20 09:20 | DS.PCM_ITS ---
Providers Date of Admission: 09/17/21 Primary Care Physician: Dr. Titi Tao MD Reason For Visit: BL PNA, ? COVID, MARTY Diagnosis Discharge Diagnosis (1) MARTY (acute kidney injury): Status: Acute Code(s): N17.9 - Acute kidney failure, unspecified (2) Constipation: Status: Acute Code(s): K59.00 - Constipation, unspecified Qualifiers: Constipation type: unspecified constipation type Qualified Code(s): K59.00 - Constipation, unspecified (3) Bilateral pneumonia: Status: Acute Code(s): J18.9 - Pneumonia, unspecified organism Qualifiers: Lung location: lower lobe of lung Pneumonia type: due to unspecified organism Qualified Code(s): J18.9 - Pneumonia, unspecified organism Medications at Discharge Home Medications dicyclomine 20 mg PO TIDAC 02/26/14 lorazepam 0.5 mg PO TID 02/26/14 omega-3 fatty acids-fish oil [Fish Oil 1,000 mg Capsule] 1 ea PO DAILY 02/26/14 paroxetine HCl 20 mg PO DAILY 02/26/14 cefdinir 300 mg PO BID #8 cap 09/20/21 metoprolol tartrate 100 mg PO BID 09/20/21 Hospital Course Summary of Care Provided Hospital Course: This 55-year-old gentleman was admitted with nonproductive cough, headache constipation, did not had bowel movement for 2 weeks along with lab features consistent with acute kidney injury. 1. Acute kidney injury: Patient is being admitted to PCU. Seems prerenal. BUN/creatinine profile improving. Monitor intake and output, electrolytes and kidney function. Daily weight. Patient urine output was adequate and not hungry. CBC shows hemoglobin 10.9/32.4. BUN/creatinine 61/1.78, improving. Denies burning micturition. K4.1. Sodium 152. Calcium 9.6. Magnesium 3.0. Phosphorus 2.8. 2. Bilateral pneumonia most likely due to bacterial pneumonia: Abdominal x-ray independently initially reviewed and shows bilateral infiltrates in lower lobes. Patient has mild nonproductive cough. Patient was started on IV ceftriaxone -Patient not vaccinated for COVID-19, rapid antigen negative. -Procalcitonin 0.5. Rapid antigen and COVID-19 PCR negative. Normal WBC count. ALC 0.55 thousand. D-dimer, LDH and lactic acid normal. Ferritin and CRP elevated. Isolation discontinued. Patient blood culture initially showed gram-positive cocci in cluster and vancomycin was started empirically but final culture showed staph epidermidis thereafter vancomycin discontinued. Patient is discharged on cefdinir to complete a total of 7 days of antibiotic. -Patient currently on room air. 3. Constipation -Bowel regimen. Patient did not bowel for 2 weeks prior to admission. Patient had good bowel movement on 09/19. 4. Hypertension -Continue metoprolol -Vital signs per protocol, currently stable 5. Anxiety -Continue home medication regimen including paroxetine and lorazepam. DVT prophylaxis-subcu heparin and SCDs Discharge medication reconciliation done. Discharge follow-up instructions completed. Discharge process discussed with the patient and all questions were answered to patient's satisfaction. Advised to follow with the current systems management consultant Dr. RUSS in 2 weeks to monitor kidney function and electrolytes. Follow with PCP. Scripts sent to patient's preferred pharmacy. Total time spent, exact 35 minutes on discharge meds reconciliation, examination, coordination of care with nurses and ancillary staff, review of imaging and blood test and discussion with the patient on follow-up instructions Physical Exam Narrative Patient is not short of breath. Spontaneously voiding yellow urine. BUN/creatinine showed improvement patient has chronic stuttering and restlessness. Patient is on lorazepam and paroxetine at home Physical exam General: Awake, alert and oriented x3. HEENT: Atraumatic, PERRLA, EOMI, Normocephalic Oral: No Gingival or Mucosal Lesions/ Ulcerations Neck: Supple, No JVD, Negative Carotid Bruits Lungs: Air entry diminished in bilateral lung bases. No crepitation/rhonchi Cardiovascular: Sinus rhythm, Normal S1, Normal S2, No murmurs Abdomen: Bowel Sounds Present, Soft, Non Tender, Non-Distended : No burning micturition of urine. No tender in penile urine or scrotal region. Urine remote sufficient. No suprapubic tenderness. Extremities: No edema, Capillary Refill Less than 3 Seconds Skin: No rashes, No breakdown Musculoskeletal: No Tenderness to Palpation of Joints or Extremities. Tremors in both hands. Restless legs. Neurological: Chronic stuttering. No acute. Cranial nerves II-XII grossly intact, DTR 2+/4, Neuro grossly intact Psych/Mental Status: Restless, anxiety Weight / BMI Weight Weight: 152 lb 5.431 oz Body Mass Index (BMI) 24.5 ABG / Lab / Microbiology Data Result Diagrams: 09/19/21 12:25 09/19/21 12:25 Laboratory: Laboratory Results - last 24 hr 09/19/21 12:25: WBC 3.7 L, RBC 3.40 L, Hgb 10.9 L, Hct 32.4 L, MCV 95.3 H, MCH 32.1 H, MCHC 33.6, RDW Std Deviation 46.5 H, RDW Coeff of Marycruz 14.1, Plt Count 193, MPV 9.5, Differential Comment SCANNED 09/19/21 12:25: Sodium 152 H, Potassium 4.1, Chloride 123 H, Carbon Dioxide 23.0, Anion Gap 6, BUN 61 H, Creatinine 1.78 H, Estim Creat Clear Calc 42.81, Est GFR (MDRD) Af Amer 51 L, Est GFR (MDRD) Non-Af 42 L, BUN/Creatinine Ratio 34.3 H, Glucose 108 H, Calcium 9.6, Phosphorus 2.8, Magnesium 3.0 H, Total Bilirubin 0.60, AST 49 H, ALT 117 H, Alkaline Phosphatase 230 H, Total Protein 7.6, Albumin 3.0 L, Globulin 4.6 H, Albumin/Globulin Ratio 0.7 L Microbiology: Microbiology 09/17/21 20:00 Blood Culture (Wb) - Anticubital Left Bacteria Detection (PCR) - Final Staphylococcus epidermidis 09/17/21 20:00 Blood Culture (Wb) - Anticubital Left Blood Culture - Preliminary Staphylococcus epidermidis 09/17/21 16:18 Blood Culture (Wb) - Anticubital Left Blood Culture - Preliminary No growth in 48 hours. 09/17/21 20:25 Urine, Random Legionella Antigen - Final 09/17/21 20:25 Urine, Random Streptococcus pneumoniae Antigen (M - Final 09/17/21 17:13 Nasal Secretion SARS-CoV-2 Antigen (Rapid) - Final Meaningful Use Info Meaningful Use Diagnoses (Choose all that apply): None applicable Discharge Plan Admission Admit Date/Time: 09/17/21 20:35 Primary Reason for Your Visit: Acute kidney injury Attending Provider: Fito Pires Primary Care Provider: Titi Tao Discharge Orders/Prescriptions Prescriptions: New cefdinir 300 mg capsule 300 mg PO BID Qty: 8 RF: 0 Continued lorazepam 0.5 MG tablet 0.5 mg PO TID RF: 0 paroxetine HCl 20 MG tablet 20 mg PO DAILY RF: 0 dicyclomine 10 MG capsule 20 mg PO TIDAC RF: 0 omega-3 fatty acids-fish oil [Fish Oil] 1 EACH capsule 1 ea PO DAILY RF: 0 metoprolol tartrate 100 MG tablet 100 mg PO BID RF: 0 Referrals / Follow Up: Mellisa Russ MD [STAFF PHYSICIAN] - Within 2 Weeks (to check kidney function for MARTY) Titi Tao MD [Primary Care Provider] - In 1 Week Disposition Disposition (needs filled in before D/C Order can be placed): Home, Self Care Charges/Coding Visit Charges Inpatient E&M: 96950 Disch Hosp
--- NOTE | 2021-09-20 09:20 | PCM.DC ---
Discharge Instructions Diet Discharge Diet: 2000 mg Sodium Diet Activity Discharge Activity: May Not Drive Weight Bearing Status: Weight bearing as tolerated Dressing / Incision Call your doctor if you observe: Fever of 101 or Higher, Coldness, Increased Pain, Numbness or Tingling, Change in Color, Inability to urinate, Inability to have a bowel movement, Shortness of breath, Dizziness, Fainting spells, Swelling in the ankles, Chest pain, Prolonged hiccupping, Increased palpitations (irregular heartbeat), Calf discomfort and Uncontrolled pain Follow Up Care Test Results: Test results from this visit will be discussed in further detail at your follow-up appointment, if applicable. Discharge Plan Admission Admit Date/Time: 09/17/21 20:35 Primary Reason for Your Visit: Acute kidney injury Attending Provider: Fito Pires Primary Care Provider: Titi Tao Discharge Orders/Prescriptions Prescriptions: New cefdinir 300 mg capsule 300 mg PO BID Qty: 8 RF: 0 Continued lorazepam 0.5 MG tablet 0.5 mg PO TID RF: 0 paroxetine HCl 20 MG tablet 20 mg PO DAILY RF: 0 dicyclomine 10 MG capsule 20 mg PO TIDAC RF: 0 omega-3 fatty acids-fish oil [Fish Oil] 1 EACH capsule 1 ea PO DAILY RF: 0 metoprolol tartrate 100 MG tablet 100 mg PO BID RF: 0 Referrals / Follow Up: Mellisa Leung MD [STAFF PHYSICIAN] - Within 2 Weeks (to check kidney function for MARTY) Titi Tao MD [Primary Care Provider] - In 1 Week Disposition Disposition (needs filled in before D/C Order can be placed): Home, Self Care
[2021-09-20] MEDS: Heparin Injection (Vial) 5,000 UNIT/ML VIAL 5000 UNIT SC (10:32)
[2021-09-20] MEDS: Paroxetine 20 MG Tablet PO (10:32)
[2021-09-20 10:33] VITALS: PULSE 85
[2021-09-20] MEDS: Ketorolac 15 MG/ML Vial IV (10:33)
[2021-09-20] MEDS: Metoprolol Tartrate 100 MG Tablet PO (10:33)
[2021-09-20] MEDS: 0.9% Saline Lock 10 ML Syringe IV (10:40)
[2021-09-20 11:04] VITALS: BP 132/84; PULSE 79; RESP 18; TEMP 36.6; O2SAT 97
[2021-09-20 11:32] VITALS: O2SAT 93
== END 2021-09-20 15:21 | disposition home or self-care (01) | DRG 194 ==
LOC: ED 19:34 → PCU 20:40
PROVIDERS: Admitting Provider Family Medicine; Emergency Provider Emergency Medicine; PCP Family Medicine; Visit Provider Internal Medicine
DX: J15.9 Unspecified bacterial pneumonia (principal); N17.9 Acute kidney failure, unspecified; K59.09 Other constipation; F41.9 Anxiety disorder, unspecified; E86.0 Dehydration; I10 Essential (primary) hypertension; R09.02 Hypoxemia; Z28.3 Underimmunization status
CPT/HCPCS: 36415; 71046; 74022; 80053; 80307; 81001; 82009; 82728; 83036; 83605; 83615; 83690; 83735; 83880; 84100; 84145; 84484; 85025; 85027; 85379; 86140; 87040; 87149; 87426; 87449; 87633; 87635; 93005; 99251; 99285; J7030; J7040; A4216; G0463; U0003; U0005

== ENCOUNTER 2022-01-16 15:37 | Emergency (ER) | payer MEDICARE, MEDICAID, SELFPAY ==
[2022-01-16 15:39] VITALS: BP 150/109; PULSE 66; RESP 17; TEMP 36.6; O2SAT 98; BMI 26.9
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
== END 2022-01-16 18:17 | disposition home or self-care (01) ==
PROVIDERS: Emergency Provider Emergency Medicine; PCP Family Medicine; Visit Provider Emergency Medicine
DX: S61.452A Open bite of left hand, initial encounter (principal); I10 Essential (primary) hypertension; R62.50 Unspecified lack of expected normal physiological development in childhood; Y04.1XXA Assault by human bite, initial encounter; F41.9 Anxiety disorder, unspecified; F79 Unspecified intellectual disabilities
CPT/HCPCS: 99282

== ENCOUNTER → 2022-09-21 | Outpatient (CLI) | payer MEDICARE, MEDICAID, SELFPAY ==
[2022-07-16 16:30] LABS: CREATININE FINGERSTICK 1.1 mg/dL (0.70-1.30); EGFR FINGERSTICK > 60.0000 mL/min (>60)
--- NOTE | 2022-09-21 13:45 | MRI_ITS ---
STUDY: MRI ORBITS WITH AND WITHOUT CONTRAST REASON FOR EXAM: Male, 56 years old. OPTIC ATROPHY -- ORBITS TECHNIQUE: Standardized fat and water weighted pulse sequences were obtained in all 3 orthogonal planes, pre-and post contrast administration. IV 15ML CLARISCAN was administered for the contrast portion of the examination. COMPARISON: None. FINDINGS: Examination of the orbits is less than optimal due to extensive motion artifact. Normal bilateral globes. Normal bilateral optic nerve sheath complexes and optic nerves. Normal bilateral intraconal and extraconal spaces. Normal bilateral extraocular muscles. Normal optic chiasm and post-chiasmatic tracts. Normal sella turcica, pituitary gland, infundibular stalk, and hypothalamus. Normal bilateral cavernous sinuses. Normal tectal plate and pineal gland. Normal flow voids within the major intracranial circulation suggesting patency by spin echo criteria. Normal size of the ventricles and extra-axial spaces for the patient''s age. Normal white matter tracts of the supratentorial brain. Normal bilateral basal ganglia. Normal thalami. There is no extra-axial fluid accumulation. Normal midbrain, darryl and medulla. Normal cerebellum. Normal basal cisterns. MRI/Orbit Face Neck W/WO Contrast IMPRESSION: Limited study of the orbits without definitive evidence for focal lesions within the optic nerves given motion artifact. Electronically Signed: Titi Buckner MD at 21:34 EST ,
[2022-09-21 14:25] LABS: CREATININE FINGERSTICK 1.3 mg/dL (0.70-1.30)
== END | disposition home or self-care (01) ==
LOC: MRI 13:07
PROVIDERS: PCP Family Medicine; Referring Provider Ophthalmology; Visit Provider Ophthalmology
DX: H47.291 Other optic atrophy, right eye (principal)
CPT/HCPCS: 70543; A9575

== ENCOUNTER 2023-03-31 21:47 | Emergency (ER) | payer MEDICARE, MEDICAID, SELFPAY ==
[2023-03-31 21:48] VITALS: BP 204/121; PULSE 66; RESP 17; TEMP 35.8; O2SAT 100
[2023-03-31 22:04] VITALS: BMI 28.3
[2023-03-31] MEDS: Ondansetron 4 MG/2 ML Vial IV (23:08)
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
[2023-03-31 23:17] LABS: Absolute Lymphocyte Count 0.72 X10^3/uL (0.83-4.51); Absolute Neutrophil Count 4.8 X10^3/uL (2.0-7.7); Basophil# 0.04 X10^3/uL; Basophil% 0.7 % (0-1); Eosinophil# 0.05 X10^3/uL; Eosinophils% 0.8 % (0-5); Hematocrit 36.9 % (40-54); Hemoglobin 12.6 g/dL (13.0-16.5); Lymphocyte # 0.72 X10^3/ul (0.83-4.51); Lymphocyte % 12.2 % (19-41); Mean Corp Hgb Conc 34.1 g/dL (32-36); Mean Corpuscular Hgb 31.4 pg (27.0-32.0); Mean Platelet Vol. 9.4 fl (6.2-12.0); Monocyte% 5.1 % (0-10); NRBC Flagged by Analyzer 0 % (0-5); Neutrophil # 4.75 X10^3/uL (2.7-7.7); Neutrophil % 80.7 % (47-70); Platelet Count 106 K/mm3 (150-450); RBC Distribution Width CV 14.3 % (11.6-14.6); RBC Distribution Width SD 44.9 fl (35.1-43.9); Red Blood Count 4.01 M/mm3 (4.6-6.2); White Blood Count 5.9 K/mm3 (4.4-11.0)
[2023-03-31 23:30] LABS: Anion Gap 6 (5-15); BUN 20 mg/dL (7-18); BUN/Creat Ratio 12.8 RATIO (10-20); Calcium,Total 9.7 mg/dL (8.5-10.1); Chloride 104 mmol/L (98-107); Creatinine, Serum 1.56 mg/dL (0.70-1.30); EST Glomerular Filtration Rate 49 mL/min (>60); Est Glom Filt Rate - Afr Amer 59 mL/min (>60); Estimated Creatinine Clearance 47.71 ml/min; Glucose 114 mg/dL (74-106); Potassium 3.7 mmol/L (3.5-5.1); Sodium Level 139 mmol/L (136-145)
== END 2023-04-01 00:07 | disposition home or self-care (01) ==
PROVIDERS: Emergency Provider Emergency Medicine; PCP Family Medicine; Visit Provider Emergency Medicine
DX: R10.13 Epigastric pain (principal); R11.2 Nausea with vomiting, unspecified; F81.9 Developmental disorder of scholastic skills, unspecified; F32.A Depression, unspecified; I10 Essential (primary) hypertension; K59.00 Constipation, unspecified; Z79.899 Other long term (current) drug therapy
CPT/HCPCS: 80048; 85025; 96374; 99282; A4216; J2405

== ENCOUNTER → 2025-01-28 | Outpatient (CLI) | payer MEDICARE, MEDICAID, SELFPAY ==
[2025-01-28 17:11] LABS: ALB/GLOB Ratio 1.9 RATIO (0.9-2.4); AST(SGOT) 15 U/L (<=37); Alanine Aminotransfer ALT/SGPT 21 U/L (<=46); Albumin, Serum 4.7 g/dL (3.5-5.0); Alkaline Phosphatase 78 U/L (40-129); Anion Gap 13 (5-15); BUN 30 mg/dL (4-19); BUN/Creat Ratio 19.2 RATIO (10-20); Calcium,Total 9.9 mg/dL (7.6-11.0); Carbon Dioxide 24.1 mmol/L (21.0-32.0); Chloride 105 mmol/L (98-108); Creatinine, Serum 1.58 mg/dL (0.70-1.20); EST Glomerular Filtration Rate 50 (>60); Globulin 2.5 g/dL (2.2-4.2); Glucose 100 mg/dL (70-99); Protein, Total 7.2 g/dL (5.9-8.4); Sodium Level 142 mmol/L (133-145); Total Bilirubin 0.41 mg/dL (0.00-1.30)
== END | disposition home or self-care (01) ==
LOC: BIMLAB 15:03
PROVIDERS: PCP Internal Medicine; Referring Provider Internal Medicine; Visit Provider Internal Medicine
DX: I10 Essential (primary) hypertension (principal); R97.20 Elevated prostate specific antigen [PSA]
CPT/HCPCS: 36415; 80053; 84153